=== PATIENT | female | born 1965 | race Caucasian/White ===

== ENCOUNTER 2018-09-06 15:31 | Emergency (ER) | payer OTHER ==
[2018-09-06] MEDS ORDERED: Sodium Chloride 0.9% 10 ML Syringe FLUSH PRN (18:16)
[2018-09-06] MEDS ORDERED: Ketorolac 30 MG/ML SDV IVPUSH ONE (18:17)
--- NOTE | 2018-09-06 18:20 | EDM.PDOC ---
ED HPI GENERAL MEDICAL PROBLEM - General Chief Complaint: Abdominal Pain Stated Complaint: right pain in rib area Time Seen by Provider: 09/06/18 16:08 Source of Information: Reports: Patient, Family, RN Notes Reviewed History Limitations: Reports: No Limitations - History of Present Illness INITIAL COMMENTS - FREE TEXT/NARRATIVE: 53-year-old female presents emergency department day complaint of right lower abdominal pain, she states the pain is been ongoing for the last 2 days progressively gotten worse it does come and go she denies any other symptoms nausea vomiting shortness breath chest pain no problems GI symptomology doesn 't history of cholecystectomy as well as appendectomy she is also had a fever, does have a history of diverticulitis Right Middle Abdomen Pain Score (Numeric/FACES): 5 - Related Data Allergies Allergy/AdvReac Type Severity Reaction Status Date / Time No Known Allergies Allergy Verified 06/27/14 06:57 Home Meds: Home Meds Acyclovir [Zovirax] 800 mg PO ONETIME 06/26/14 [History] Adapalene [Differin 0.1% Crm] 1 applic TOP BEDTIME 06/26/14 [History] Aspirin [Low Dose Aspirin EC] 81 mg PO DAILY 06/26/14 [History] Betamethasone Dipropionate [Diprosone 0.05% Crm] 1 applic TP BID 06/26/14 [ History] Chlorpheniramine Maleate 4 mg PO DAILY 06/26/14 [History] Cimetidine [Tagamet] 400 mg PO TID 06/26/14 [History] Cyclobenzaprine [Flexeril] 10 mg PO TID PRN 06/26/14 [History] Levothyroxine [Levothroid] 137 mcg PO DAILY 06/26/14 [History] Meclizine [Antivert] 25 mg PO Q6H PRN 06/26/14 [History] Multivitamin [Multi-Vitamin Daily] 1 each PO DAILY 06/26/14 [History] Norgestimate-Ethinyl Estradiol [Sprintec] 1 tab PO DAILY 06/26/14 [History] Triamcinolone Acetonide [Kenalog 0.1% Crm] 1 applic TOP DAILY PRN 06/26/14 [ History] diphenhydrAMINE [Benadryl] 50 mg PO BEDTIME PRN 06/26/14 [History] traZODone 100 mg PO BEDTIME 06/26/14 [History] Past Medical History Gastrointestinal History: Reports: Diverticulosis - Infectious Disease History Infectious Disease History: Reports: Chicken Pox - Past Surgical History GI Surgical History: Reports: Appendectomy, Cholecystectomy Social & Family History - Tobacco Use Smoking Status *Q: Never Smoker - Caffeine Use Caffeine Use: Reports: Coffee, Soda, Tea - Recreational Drug Use Recreational Drug Use: No ED ROS GENERAL - Review of Systems Review Of Systems: See Below Constitutional: Reports: Fever, Chills HEENT: Reports: No Symptoms Respiratory: Reports: No Symptoms Cardiovascular: Reports: No Symptoms GI/Abdominal: Reports: Abdominal Pain, Flatus. Denies: Constipation, Diarrhea, Nausea, Vomiting : Reports: No Symptoms Musculoskeletal: Reports: No Symptoms Skin: Reports: No Symptoms Neurological: Reports: No Symptoms ED EXAM, GI/ABD - Physical Exam Exam: See Below Text/Narrative:: General: Female, not in any distress, alert and oriented x3 HEENT: head is atraumatic normocephalic, eyes pupils equal round Neck: Supple no thyromegaly no tracheal deviation. Nodes: Cervical nodes subclavicular nodes nontender no palpable lymphadenopathy noted. Lungs: clear to auscultation bilaterally with symmetrical respirations, no adventitious noise appreciated. CV: Regular rate and rhythm S1 and S2 appreciated no murmurs rubs or gallops noted. Abdomen: Soft, tender right lower quadrant, no palpable masses or organomegaly appreciated, no distention no guarding bowel sounds are present, . Neuro: GCS 15 Skin: Warm and dry, intact Extremities: No lower extremity edema appreciated, Exam Limited By: No Limitations Course - Vital Signs Last Recorded V/S: Last Vital Signs Temp 100.1 F 09/06/18 17:19 Pulse 102 H 09/06/18 18:39 Resp 16 09/06/18 18:39 BP 159/82 H 09/06/18 18:39 Pulse Ox 97 09/06/18 18:39 - Orders/Labs/Meds Orders: Active Orders 24 hr Category Date Time Status Peripheral IV Care [RC] . DIRECTED Care 09/06/18 18:16 Active Abdomen Pelvis w Cont [CT] Urgent Exams 09/06/18 18:16 Taken Lactated Ringers [Ringers, Lactated] 1,000 ml Med 09/06/18 18:30 Active IV ASDIRECTED Sodium Chloride 0.9% [Normal Saline] 85 ml Med 09/06/18 19:00 Active IV ASDIRECTED Sodium Chloride 0.9% [Saline Flush] Med 09/06/18 18:16 Active 10 ml FLUSH ASDIRECTED PRN Peripheral IV Insertion Adult [OM.PC] Urgent Oth 09/06/18 18:16 Ordered Medication Orders Lactated Ringer's (Ringers, Lactated) 1,000 mls @ 999 mls/hr IV ASDIRECTED SOLANGE Last Admin: 09/06/18 18:40 Dose: 999 mls/hr Sodium Chloride (Normal Saline) 85 mls @ 3 mls/sec IV ASDIRECTED SOLANGE Last Admin: 09/06/18 19:11 Dose: 3 mls/sec Sodium Chloride (Saline Flush) 10 ml FLUSH ASDIRECTED PRN PRN Reason: Keep Vein Open Last Admin: 09/06/18 18:40 Dose: 10 ml Labs: Laboratory Tests 09/06/18 09/06/18 09/06/18 Range/Units 18:16 18:16 18:16 WBC 14.5 H (4.5-11.0) K/uL RBC 4.02 (3.30-5.50) M/uL Hgb 12.8 (12.0-15.0) g/dL Hct 38.0 (36.0-48.0) % MCV 95 (80-98) fL MCH 32 H (27-31) pg MCHC 34 (32-36) % Plt Count 294 (150-400) K/uL Neut % (Auto) 68 H (36-66) % Lymph % (Auto) 21 L (24-44) % [place]ady % (Auto) 9 H (2-6) % Eos % (Auto) 2 (2-4) % Baso % (Auto) 0 (0-1) % Sodium 138 L (140-148) mmol/L Potassium 4.2 (3.6-5.2) mmol/L Chloride 102 (100-108) mmol/L Carbon Dioxide 26 (21-32) mmol/L Anion Gap 14.2 H (5.0-14.0) mmol/L BUN 16 (7-18) mg/dL Creatinine 1.1 H (0.6-1.0) mg/dL Est Cr Clr Drug Dosing 61.10 mL/min Estimated GFR (MDRD) 52 L (>60) Glucose 112 H (74-106) mg/dL Lactic Acid 1.6 (0.4-2.0) mmol/L Calcium 10.1 (8.5-10.1) mg/dL Total Bilirubin 0.4 (0.2-1.0) mg/dL AST 20 (15-37) U/L ALT 28 (12-78) U/L Alkaline Phosphatase 84 (46-116) U/L Troponin I < 0.017 (0.000-0.056) ng/mL Total Protein 7.0 (6.4-8.2) g/dL Albumin 3.1 L (3.4-5.0) g/dL Globulin 3.9 H (2.3-3.5) g/dL Albumin/Globulin Ratio 0.8 L (1.2-2.2) Lipase 101 (73-393) U/L Urine Color Urine Appearance Urine pH (4.5-8.0) Ur Specific [place] (1.008-1.030) Urine Protein (NEGATIVE) mg/dL Urine Glucose (UA) (NEGATIVE) mg/dL Urine Ketones (NEGATIVE) mg/dL Urine Occult Blood (NEGATIVE) Urine Nitrite (NEGATIVE) Urine Bilirubin (NEGATIVE) Urine Urobilinogen (NORMAL) mg/dL Ur Leukocyte Esterase (NEGATIVE) Urine RBC (0-5) Urine WBC (0-5) Ur Epithelial Cells Amorphous Sediment Urine Bacteria Urine Mucus 09/06/18 Range/Units 18:21 WBC (4.5-11.0) K/uL RBC (3.30-5.50) M/uL Hgb (12.0-15.0) g/dL Hct (36.0-48.0) % MCV (80-98) fL MCH (27-31) pg MCHC (32-36) % Plt Count (150-400) K/uL Neut % (Auto) (36-66) % Lymph % (Auto) (24-44) % [place] % (Auto) (2-6) % Eos % (Auto) (2-4) % Baso % (Auto) (0-1) % Sodium (140-148) mmol/L Potassium (3.6-5.2) mmol/L Chloride (100-108) mmol/L Carbon Dioxide (21-32) mmol/L Anion Gap (5.0-14.0) mmol/L BUN (7-18) mg/dL Creatinine (0.6-1.0) mg/dL Est Cr Clr Drug Dosing mL/min Estimated GFR (MDRD) (>60) Glucose (74-106) mg/dL Lactic Acid (0.4-2.0) mmol/L Calcium (8.5-10.1) mg/dL Total Bilirubin (0.2-1.0) mg/dL AST (15-37) U/L ALT (12-78) U/L Alkaline Phosphatase (46-116) U/L Troponin I (0.000-0.056) ng/mL Total Protein (6.4-8.2) g/dL Albumin (3.4-5.0) g/dL Globulin (2.3-3.5) g/dL Albumin/Globulin Ratio (1.2-2.2) Lipase (73-393) U/L Urine Color Yellow Urine Appearance Clear Urine pH 5.0 (4.5-8.0) Ur Specific [place] 1.025 (1.008-1.030) Urine Protein Negative (NEGATIVE) mg/dL Urine Glucose (UA) Normal (NEGATIVE) mg/dL Urine Ketones Negative (NEGATIVE) mg/dL Urine Occult Blood Negative (NEGATIVE) Urine Nitrite Negative (NEGATIVE) Urine Bilirubin Negative (NEGATIVE) Urine Urobilinogen Normal (NORMAL) mg/dL Ur Leukocyte Esterase Trace (NEGATIVE) Urine RBC 0-5 (0-5) Urine WBC 0-5 (0-5) Ur Epithelial Cells Rare Amorphous Sediment Rare Urine Bacteria Not seen Urine Mucus Rare Meds: Medications Generic Name Dose Route Start Last Admin Trade Name Freq PRN Reason Stop Dose Admin Lactated Ringer's 1,000 mls @ 999 mls/hr 09/06/18 18:30 09/06/18 18:40 Ringers, Lactated IV 999 mls/hr ASDIRECTED SOLANGE Administration Sodium Chloride 85 mls @ 3 mls/sec 09/06/18 19:00 09/06/18 19:11 Normal Saline IV 3 mls/sec ASDIRECTED SOLANGE Administration Sodium Chloride 10 ml 09/06/18 18:16 09/06/18 18:40 Saline Flush FLUSH 10 ml ASDIRECTED PRN Administration Keep Vein Open Discontinued Medications Generic Name Dose Route Start Last Admin Trade Name Freq PRN Reason Stop Dose Admin Iopamidol 150 ml 09/06/18 19:00 09/06/18 19:11 Isovue-300 (61%) IV 150 ml . DIRECTED SOLANGE Administration Ketorolac Tromethamine 30 mg 09/06/18 18:17 09/06/18 18:40 Toradol IVPUSH 09/06/18 18:18 30 mg ONETIME ONE Administration Sodium Chloride 10 ml 09/06/18 18:59 09/06/18 19:11 Saline Flush FLUSH 09/06/18 19:00 10 ml ONETIME ONE Administration Departure - Departure Time of Disposition: 20:02 Disposition: Home, Self-Care 01 Condition: Fair Clinical Impression: Diverticulitis - Discharge Information Referrals: Noelle Ortiz PA [Primary Care Provider] - Forms: ED Department Discharge Additional Instructions: Take full course of antibiotics, Please followup with your primary care provider in 3-5 days for reevaluation, please call return to the emergency department with worsening of symptoms. - My Orders Last 24 Hours: My Active Orders 09/06/18 18:16 Peripheral IV Care [RC] . DIRECTED Abdomen Pelvis w Cont [CT] Urgent Sodium Chloride 0.9% [Saline Flush] 10 ml FLUSH ASDIRECTED PRN Peripheral IV Insertion Adult [OM.PC] Urgent 09/06/18 18:30 Lactated Ringers [Ringers, Lactated] 1,000 ml IV ASDIRECTED 09/06/18 19:00 Sodium Chloride 0.9% [Normal Saline] 85 ml IV ASDIRECTED - Assessment/Plan Last 24 Hours: My Active Orders 09/06/18 18:16 Peripheral IV Care [RC] . DIRECTED Abdomen Pelvis w Cont [CT] Urgent Sodium Chloride 0.9% [Saline Flush] 10 ml FLUSH ASDIRECTED PRN Peripheral IV Insertion Adult [OM.PC] Urgent 09/06/18 18:30 Lactated Ringers [Ringers, Lactated] 1,000 ml IV ASDIRECTED 09/06/18 19:00 Sodium Chloride 0.9% [Normal Saline] 85 ml IV ASDIRECTED Plan: Assessment Acuity = acute Site and laterality = diverticulitis right lower quadrant Etiology = unclear etiology Manifestations = fever, abdominal pain Location of injury = Home Lab values = WBC elevated at 14.5 consistent leukocytosis, creatinine elevated 1.1 consistent with chronic renal failure stage GIII a lactic acid normal 1.6 troponin was negative lipase normal 101 CT scan describes diverticulitis Plan I did review CT scan results with her as well as treatments elected treat with Augmentin [phone] by mouth twice a day 10 days she's got follow-up with your primary care 3-5 days and discuss further options of treatment as she has had several bouts of diverticulitis This note was dictated using [employer] voice recognition software please call with any questions on syntax or grammar.
[2018-09-06] MEDS ORDERED: Lactated Ringers 1,000 ML IV SCH (18:30)
[2018-09-06] MEDS ORDERED: Sodium Chloride 0.9% 10 ML Syringe FLUSH ONE (18:59)
[2018-09-06] MEDS ORDERED: Iopamidol 612 MG/ML 150 ML Bottle IV SCH (19:00)
== END 2018-09-06 20:12 | disposition home or self-care (01) ==
LOC: JP.ED 15:31
DX: K57.32 Diverticulitis of large intestine without perforation or abscess without bleeding (principal); Z79.899 Other long term (current) drug therapy; Z79.82 Long term (current) use of aspirin
CPT/HCPCS: 36415; 74177; 80053; 81001; 83605; 83690; 84484; 85025; 96361; 96374; 99285; J1885; J7030; J7120

== ENCOUNTER 2024-03-10 21:01 | Emergency (ER) | payer BC, OTHER ==
[2024-03-10] MEDS: diphenhydrAMINE 50 MG/ML SDV IVPUSH ONE (21:24)
[2024-03-10] MEDS: Sodium Chloride 0.9% 10 ML Syringe FLUSH PRN (21:24)
[2024-03-10] MEDS: methylPREDNISolone Sodium Succinate 125 MG/2 ML SDV IV ONE (21:26)
[2024-03-10] MEDS: Famotidine 20 MG/2 ML SDV IVPUSH ONE (21:28)
[2024-03-10] MEDS: EPINEPHrine 1 MG/ML SDV IM ONE (21:34)
== END 2024-03-10 22:45 | disposition home or self-care (01) ==
LOC: JP.ED 21:01
DX: L50.0 Allergic urticaria (principal); T36.8X5A Adverse effect of other systemic antibiotics, initial encounter; Z79.82 Long term (current) use of aspirin; Z88.2 Allergy status to sulfonamides; Z88.8 Allergy status to other drugs, medicaments and biological substances
CPT/HCPCS: 96374; 96375; 99283; J1200; J2919; J3490

== ENCOUNTER 2024-04-07 18:05 | Emergency (ER) | payer BC ==
[2024-04-07] MEDS: Amoxicillin/Clavulanate K 875-125 MG Tab PO ONE (19:15)
== END 2024-04-07 19:27 | disposition home or self-care (01) ==
LOC: JP.ED 18:05
DX: K57.92 Diverticulitis of intestine, part unspecified, without perforation or abscess without bleeding (principal); R10.32 Left lower quadrant pain; E03.9 Hypothyroidism, unspecified; Z88.2 Allergy status to sulfonamides; Z88.8 Allergy status to other drugs, medicaments and biological substances; Z79.82 Long term (current) use of aspirin; Z79.890 Hormone replacement therapy; Z79.899 Other long term (current) drug therapy; Z86.16 Personal history of COVID-19; Z90.49 Acquired absence of other specified parts of digestive tract
CPT/HCPCS: 99283; A9270

== ENCOUNTER 2024-05-21 16:12 | Emergency (ER) | payer BC ==
[2024-05-21] MEDS ORDERED: fentaNYL 100 MCG/2 ML SDV IM ONE (17:56)
[2024-05-21] MEDS: Ketorolac 30 MG/ML SDV IM ONE (19:06)
== END 2024-05-21 19:36 | disposition home or self-care (01) ==
LOC: JP.ED 16:12
DX: M25.561 Pain in right knee (principal); K21.9 Gastro-esophageal reflux disease without esophagitis; Z79.899 Other long term (current) drug therapy; Z79.82 Long term (current) use of aspirin; Z88.2 Allergy status to sulfonamides
CPT/HCPCS: 73562; 96372; 99283; J1885

== ENCOUNTER 2024-11-29 17:06 | Inpatient (IN) | payer BC ==
[2024-11-29 18:38] LABS: BASOPHILS ABSOLUTE AUTO 0.04 K/uL (0.00-0.10); BASOPHILS PERCENT AUTO 0.3 % (0.1-1.3); EOSINOPHILS ABSOLUTE AUTO 0.43 K/uL (0.00-0.40); EOSINOPHILS PERCENT AUTO 3.8 % (0.0-5.4); HEMATOCRIT 42.7 % (34.3-46.0); HEMOGLOBIN 14.3 g/dL (11.2-15.5); IMMATURE GRAN ABSOLUTE AUTO 0.04 K/uL (0.00-0.23); IMMATURE GRAN PERCENT AUTO 0.3 % (0.0-0.7); LYMPHOCYTES ABSOLUTE AUTO 2.28 K/uL (0.8-3.3); LYMPHOCYTES PERCENT AUTO 19.9 % (11.4-47.7); MEAN CORPUSCULAR HEMOGLOBIN 32.3 pg (31.6-35.5); MEAN CORPUSCULAR HGB CONC 33.5 g/dL (31.6-35.5); MEAN CORPUSCULAR VOLUME 96.4 fL (81.4-99.0); MONOCYTES PERCENT AUTO 7.9 % (3.3-12.6); NEUTROPHILS ABSOLUTE AUTO 7.77 K/uL (1.0-7.6); NEUTROPHILS PERCENT AUTO 67.8 % (40.0-78.1); PLATELET COUNT,PLT 310 K/uL (130-375); RED BLOOD CELL COUNT 4.43 M/uL (3.77-5.24); WHITE BLOOD CELL COUNT,WBC 11.5 K/uL (3.2-11.0)
[2024-11-29] MEDS: Sodium Chloride 0.9% 1,000 ML IV SCH (18:45)
[2024-11-29] MEDS: HYDROmorphone 0.5 MG/0.5 ML Syringe IVPUSH ONE ×2 (18:45→19:27)
[2024-11-29] MEDS: Ondansetron 4 MG/2 ML SDV IVPUSH ONE (18:45)
[2024-11-29 18:59] LABS: A/G RATIO 0.9 (1.2-2.2); ALANINE AMINOTRANSFERASE,ALT 26 U/L (12-78); ALBUMIN 3.6 g/dL (3.4-5.0); ALKALINE PHOSPHATASE 99 U/L (46-116); ANION GAP 16.1 mmol/L (5.0-14.0); ASPARTATE AMNIOTRANSFERASE,AST 16 U/L (15-37); BILIRUBIN TOTAL 0.5 mg/dL (0.2-1.0); BLOOD UREA NITROGEN,BUN 19 mg/dL (7-18); CALCIUM 9.7 mg/dL (8.5-10.1); CARBON DIOXIDE,CO2 25 mmol/L (21-32); CHLORIDE,CL 100 mmol/L (100-108); CREATININE 1.2 mg/dL (0.6-1.0); EST CRCL DRUG DOSING (CG) 50.29 mL/min; ESTIMATED GFR 52 mL/min (>60); GLUCOSE RANDOM 113 mg/dL (74-106); POTASSIUM,K 4.1 mmol/L (3.6-5.2); PROTEIN TOTAL,TP 7.6 g/dL (6.4-8.2); SODIUM,NA 137 mmol/L (140-148)
[2024-11-29] MEDS ORDERED: Gabapentin 300 MG Cap PO PRN (21:51)
[2024-11-29] MEDS ORDERED: Magnesium Hydroxide 400 MG/5 ML Susp 30 ML Cup PO PRN (21:51)
[2024-11-29] MEDS ORDERED: Naloxone 0.4 MG/ML SDV IVPUSH PRN (21:51)
[2024-11-29] MEDS ORDERED: Ondansetron 4 MG/2 ML SDV IV PRN (21:51)
[2024-11-29] MEDS ORDERED: Sodium Chloride 0.9% 10 ML Syringe FLUSH PRN (21:51)
[2024-11-29] MEDS ORDERED: Sennosides/Docusate Sodium 50-8.6 MG Tab PO PRN (21:51)
[2024-11-29] MEDS ORDERED: Ondansetron 4 MG Tab.DIS PO PRN (21:51)
[2024-11-29] MEDS: Enoxaparin 40 MG/0.4 ML Syringe SUBCUT SCH (22:38)
[2024-11-29] MEDS: ceFAZolin 1 GM in Sodium Chloride 0.9% 50 ML IV SCH (22:38)
[2024-11-30 05:54] LABS: BASOPHILS ABSOLUTE AUTO 0.03 K/uL (0.00-0.10); BASOPHILS PERCENT AUTO 0.3 % (0.1-1.3); EOSINOPHILS ABSOLUTE AUTO 0.36 K/uL (0.00-0.40); EOSINOPHILS PERCENT AUTO 4.2 % (0.0-5.4); HEMATOCRIT 38.5 % (34.3-46.0); IMMATURE GRAN ABSOLUTE AUTO 0.03 K/uL (0.00-0.23); IMMATURE GRAN PERCENT AUTO 0.3 % (0.0-0.7); LYMPHOCYTES ABSOLUTE AUTO 1.07 K/uL (0.8-3.3); LYMPHOCYTES PERCENT AUTO 12.5 % (11.4-47.7); MEAN CORPUSCULAR HEMOGLOBIN 32.5 pg (31.6-35.5); MEAN CORPUSCULAR HGB CONC 33.8 g/dL (31.6-35.5); MEAN CORPUSCULAR VOLUME 96.3 fL (81.4-99.0); MONOCYTES ABSOLUTE AUTO 0.64 K/uL (0.20-0.90); MONOCYTES PERCENT AUTO 7.5 % (3.3-12.6); NEUTROPHILS ABSOLUTE AUTO 6.46 K/uL (1.0-7.6); NEUTROPHILS PERCENT AUTO 75.2 % (40.0-78.1); PLATELET COUNT,PLT 277 K/uL (130-375); WHITE BLOOD CELL COUNT,WBC 8.6 K/uL (3.2-11.0)
[2024-11-30 06:17] LABS: ANION GAP 9.3 mmol/L (5.0-14.0); CALCIUM 9.1 mg/dL (8.5-10.1); EST CRCL DRUG DOSING (CG) 60.35 mL/min; POTASSIUM,K 4.2 mmol/L (3.6-5.2)
[2024-11-30] MEDS: Acetaminophen 325 MG Tab PO PRN (06:17)
[2024-11-30] MEDS: oxyCODONE 5 MG Tab PO PRN (06:17)
[2024-11-30] MEDS: Levothyroxine 25 MCG Tab PO SCH (07:37)
[2024-11-30] MEDS: Pantoprazole 40 MG Tab.CR PO SCH (07:37)
[2024-11-30] MEDS: Levothyroxine 112 MCG Tab PO SCH (07:38)
[2024-11-30] MEDS: Loratadine 10 MG Tab PO SCH (08:37)
[2024-11-30] MEDS: Venlafaxine 75 MG Tab PO SCH (08:37)
[2024-11-30] MEDS ORDERED: Non-Formulary Medication 1 Each (Omeprazole [Omeprazole] 20 MG Capsule.Dr) PO SCH (09:00)
[2024-11-30] MEDS: Ibuprofen 600 MG Tab PO PRN (09:34)
[2024-11-30] MEDS: ceFAZolin 1 GM in Premix Bag 1 BAG IV SCH (13:22)
[2024-11-30] MEDS: HYDROmorphone 0.5 MG/0.5 ML Syringe IVPUSH PRN (14:47)
[2024-11-30] MEDS: traZODone 50 MG Tab PO SCH (21:11)
[2024-11-30] MEDS: Aspirin 81 MG Tab.EC PO SCH (21:12)
[2024-11-30] MEDS: Gabapentin 300 MG Cap PO SCH (21:12)
[2024-12-02] MEDS ORDERED: Cephalexin 250 MG Cap PO SCH (14:00)
== END 2024-12-02 11:30 | disposition home or self-care (01) | DRG 383 ==
LOC: JP.ED 17:06 → JP.MS 21:02
PROVIDERS: ADMIT Nurse Practitioner; ATTEND Internal Medicine
DX: L03.314 Cellulitis of groin (principal); Z68.41 Body mass index [BMI] 40.0-44.9, adult; E66.01 Morbid (severe) obesity due to excess calories; F10.90 Alcohol use, unspecified, uncomplicated; H54.7 Unspecified visual loss; K21.9 Gastro-esophageal reflux disease without esophagitis; E03.9 Hypothyroidism, unspecified; F41.9 Anxiety disorder, unspecified; Z96.659 Presence of unspecified artificial knee joint; F15.90 Other stimulant use, unspecified, uncomplicated; D72.829 Elevated white blood cell count, unspecified; L02.214 Cutaneous abscess of groin; Z88.8 Allergy status to other drugs, medicaments and biological substances; Z91.048 Other nonmedicinal substance allergy status; Z79.82 Long term (current) use of aspirin; Z79.899 Other long term (current) drug therapy; Z79.1 Long term (current) use of non-steroidal anti-inflammatories (NSAID); Z87.19 Personal history of other diseases of the digestive system; Z87.440 Personal history of urinary (tract) infections; Z87.442 Personal history of urinary calculi; Z90.49 Acquired absence of other specified parts of digestive tract; Z98.890 Other specified postprocedural states; Z87.891 Personal history of nicotine dependence
CPT/HCPCS: 36415; 76881-LT; 80048; 80053; 85025; 87040; 99222; 99231; 99238; A9270-GY; J0689; J0690; J1650; J2405; J7030

== ENCOUNTER 2025-02-19 12:36 | Emergency (ER) | payer BC ==
[2025-02-19 13:53] LABS: BASOPHILS ABSOLUTE AUTO 0.03 K/uL (0.00-0.10); BASOPHILS PERCENT AUTO 0.3 % (0.1-1.3); EOSINOPHILS ABSOLUTE AUTO 0.20 K/uL (0.00-0.40); EOSINOPHILS PERCENT AUTO 1.8 % (0.0-5.4); IMMATURE GRAN ABSOLUTE AUTO 0.04 K/uL (0.00-0.23); IMMATURE GRAN PERCENT AUTO 0.4 % (0.0-0.7); LYMPHOCYTES ABSOLUTE AUTO 1.78 K/uL (0.8-3.3); LYMPHOCYTES PERCENT AUTO 15.7 % (11.4-47.7); MONOCYTES ABSOLUTE AUTO 1.10 K/uL (0.20-0.90); MONOCYTES PERCENT AUTO 9.7 % (3.3-12.6); NEUTROPHILS ABSOLUTE AUTO 8.22 K/uL (1.0-7.6); NEUTROPHILS PERCENT AUTO 72.1 % (40.0-78.1); PLATELET COUNT,PLT 310 K/uL (130-375); RED BLOOD CELL COUNT 4.09 M/uL (3.77-5.24); WHITE BLOOD CELL COUNT,WBC 11.4 K/uL (3.2-11.0)
[2025-02-19 14:15] LABS: A/G RATIO 0.7 (1.2-2.2); ALANINE AMINOTRANSFERASE,ALT 20 U/L (12-78); ASPARTATE AMNIOTRANSFERASE,AST 15 U/L (15-37); BILIRUBIN TOTAL 0.6 mg/dL (0.2-1.0); BLOOD UREA NITROGEN,BUN 14 mg/dL (7-18); CARBON DIOXIDE,CO2 29 mmol/L (21-32); CHLORIDE,CL 99 mmol/L (100-108); CREATININE 1.0 mg/dL (0.6-1.0); ESTIMATED GFR 64 mL/min (>60); GLUCOSE RANDOM 109 mg/dL (74-106); POTASSIUM,K 4.0 mmol/L (3.6-5.2); PROTEIN TOTAL,TP 7.4 g/dL (6.4-8.2); SODIUM,NA 137 mmol/L (140-148)
[2025-02-19] MEDS: Iopamidol 612 MG/ML 100 ML Bottle IV PRN (14:50)
[2025-02-19] MEDS: Sodium Chloride 0.9% 10 ML Syringe FLUSH ONE (14:50)
[2025-02-19] MEDS: Ketorolac 15 MG/ML SDV IVPUSH ONE (16:04)
[2025-02-19] MEDS: metroNIDAZOLE/Normal Saline 500 MG in Premix Bag 1 BAG IV ONE (16:08)
[2025-02-19] MEDS: Levofloxacin/Dextrose 5%-Water 750 MG in Premix Bag 1 BAG IV ONE (16:08)
[2025-02-19 17:21] LABS: APPEARANCE,URINE CLOUDY (CLEAR); GLUCOSE,URINE NEGATIVE (NEGATIVE); OCCULT BLOOD,URINE TRACE-INTACT (NEGATIVE)
[2025-02-19 17:36] LABS: EPITHELIAL CELLS,URINE FEW
== END 2025-02-19 18:00 | disposition home or self-care (01) ==
LOC: JP.ED 12:36
DX: K57.32 Diverticulitis of large intestine without perforation or abscess without bleeding (principal); E03.9 Hypothyroidism, unspecified; K21.9 Gastro-esophageal reflux disease without esophagitis; Z88.8 Allergy status to other drugs, medicaments and biological substances; Z79.82 Long term (current) use of aspirin; Z79.890 Hormone replacement therapy; Z79.899 Other long term (current) drug therapy; Z90.49 Acquired absence of other specified parts of digestive tract
CPT/HCPCS: 36415; 74177; 80053; 81001; 85025; 86140; 96361; 96365; 96368; 96375; 99284; J1836; J1885; J1956; J7030; Q9967

== ENCOUNTER 2025-02-23 07:26 | Emergency (ER) | payer BC ==
[2025-02-23 08:04] LABS: APPEARANCE,URINE SLIGHTLY CLOUDY (CLEAR); GLUCOSE,URINE NEGATIVE (NEGATIVE); OCCULT BLOOD,URINE TRACE-INTACT (NEGATIVE)
[2025-02-23] MEDS: Ondansetron 4 MG/2 ML SDV IVPUSH ONE (08:07)
[2025-02-23 08:08] LABS: BASOPHILS PERCENT AUTO 0.2 % (0.1-1.3); EOSINOPHILS ABSOLUTE AUTO 0.26 K/uL (0.00-0.40); EOSINOPHILS PERCENT AUTO 2.4 % (0.0-5.4); IMMATURE GRAN ABSOLUTE AUTO 0.04 K/uL (0.00-0.23); IMMATURE GRAN PERCENT AUTO 0.4 % (0.0-0.7); LYMPHOCYTES ABSOLUTE AUTO 1.16 K/uL (0.8-3.3); LYMPHOCYTES PERCENT AUTO 10.9 % (11.4-47.7); MONOCYTES ABSOLUTE AUTO 0.96 K/uL (0.20-0.90); MONOCYTES PERCENT AUTO 9.0 % (3.3-12.6); NEUTROPHILS ABSOLUTE AUTO 8.21 K/uL (1.0-7.6); NEUTROPHILS PERCENT AUTO 77.1 % (40.0-78.1); PLATELET COUNT,PLT 351 K/uL (130-375); RED BLOOD CELL COUNT 4.14 M/uL (3.77-5.24); WHITE BLOOD CELL COUNT,WBC 10.7 K/uL (3.2-11.0)
[2025-02-23 08:15] LABS: BASOPHILS ABSOLUTE AUTO 0.02 K/uL (0.00-0.10)
[2025-02-23 08:18] LABS: EPITHELIAL CELLS,URINE FEW
[2025-02-23 08:32] LABS: A/G RATIO 0.7 (1.2-2.2); ALANINE AMINOTRANSFERASE,ALT 24 U/L (12-78); ASPARTATE AMNIOTRANSFERASE,AST 19 U/L (15-37); BILIRUBIN TOTAL 0.3 mg/dL (0.2-1.0); BLOOD UREA NITROGEN,BUN 11 mg/dL (7-18); CARBON DIOXIDE,CO2 27 mmol/L (21-32); CHLORIDE,CL 100 mmol/L (100-108); CREATININE 1.0 mg/dL (0.6-1.0); EST CRCL DRUG DOSING (CG) 59.60 mL/min; ESTIMATED GFR 64 mL/min (>60); GLUCOSE RANDOM 137 mg/dL (74-106); POTASSIUM,K 4.3 mmol/L (3.6-5.2); PROTEIN TOTAL,TP 7.1 g/dL (6.4-8.2); SODIUM,NA 135 mmol/L (140-148)
[2025-02-23] MEDS: Iopamidol 612 MG/ML 100 ML Bottle IV ONE (08:45)
[2025-02-23] MEDS: Sodium Chloride 0.9% 10 ML Syringe FLUSH ONE (08:46)
== END 2025-02-23 10:49 | disposition home or self-care (01) ==
LOC: JP.ED 07:26
DX: K57.32 Diverticulitis of large intestine without perforation or abscess without bleeding (principal); Z91.048 Other nonmedicinal substance allergy status; Z88.2 Allergy status to sulfonamides; Z88.8 Allergy status to other drugs, medicaments and biological substances; Z79.82 Long term (current) use of aspirin; Z79.899 Other long term (current) drug therapy; Z79.890 Hormone replacement therapy; K21.9 Gastro-esophageal reflux disease without esophagitis; E03.9 Hypothyroidism, unspecified; Z86.16 Personal history of COVID-19; Z90.49 Acquired absence of other specified parts of digestive tract
CPT/HCPCS: 36415; 74177; 80053; 81001; 83605; 83690; 85025; 96361; 96374; 96375; 99283; 99284; J1171; J2405; J7030; Q9967

== ENCOUNTER 2025-06-27 06:13 | Day surgery (SDC) | payer BC ==
[2025-06-27] MEDS: Lactated Ringers 1,000 ML IV SCH (07:05)
[2025-06-27] MEDS ORDERED: Propofol 200 MG/20 ML SDV ONE ×2 (07:18→07:54)
[2025-06-27] MEDS ORDERED: Midazolam 1 MG/ML 2 ML SDV ONE (07:18)
[2025-06-27] MEDS ORDERED: fentaNYL 50 MCG/ML SDV ONE (07:18)
== END 2025-06-27 09:30 | disposition home or self-care (01) ==
LOC: JP.SDS 06:13
PROVIDERS: ATTEND Surgery
DX: K63.5 Polyp of colon (principal); K57.30 Diverticulosis of large intestine without perforation or abscess without bleeding; E03.9 Hypothyroidism, unspecified; Z88.8 Allergy status to other drugs, medicaments and biological substances; Z88.2 Allergy status to sulfonamides; Z79.82 Long term (current) use of aspirin; Z79.899 Other long term (current) drug therapy; Z79.890 Hormone replacement therapy
CPT/HCPCS: 00811; 45380; J2250; J2704; J3010; J7120